=== PATIENT | female | born 1995 | race Two or more races ===

== ENCOUNTER 2020-02-13 10:24 | Emergency (ER) | payer SELFPAY ==
[~2020-02-13] VITALS: Ht 160 cm; Wt 61.7 kg
[2020-02-13 11:24] VITALS: BP 136/88
== END 2020-02-13 13:57 | disposition home or self-care (01) ==
LOC: ER 10:24
DX: F41.9 Anxiety disorder, unspecified (principal)
CPT/HCPCS: 71046; 81002; 81025

== ENCOUNTER 2020-05-07 11:18 | Emergency (ER) | payer MEDICAID ==
[~2020-05-07] VITALS: Ht 160 cm; Wt 59.0 kg
[2020-05-07 12:14] VITALS: BP 120/83
== END 2020-05-07 13:25 | disposition home or self-care (01) ==
LOC: ER 11:18
DX: O23.41 Unspecified infection of urinary tract in pregnancy, first trimester (principal); O26.891 Other specified pregnancy related conditions, first trimester; M54.6 Pain in thoracic spine; Z3A.01 Less than 8 weeks gestation of pregnancy

== ENCOUNTER → 2020-11-03 | Emergency (ER) | payer MEDICAID ==
[~2020-11-03] VITALS: Ht 160 cm; Wt 74.4 kg
[2020-11-03 22:46] VITALS: BP 114/77
[2020-11-04 00:14] LABS: Basophils # (auto) 0 10 ^3/uL (0-0.2); Basophils % (auto) 0.2 % (0.0-2.0); Eosinophils # (auto) 0.1 10 ^3/uL (0-0.8); Eosinophils % (auto) 1.3 % (0.0-7.0); Hematocrit 38.5 % (36.0-46.0); Hemoglobin 13.3 g/dL (12.2-16.2); Lymphocytes # (auto) 1.6 10 ^3/uL (0.4-5.4); Lymphocytes % (auto) 17.1 % (10.0-50.0); Mean Corpuscular Hemoglobin 31.2 pg (28.0-32.0); Mean Corpuscular Hgb Conc. 34.5 g/dL (32.0-36.0); Mean Corpuscular Volume 90.5 fL (80.0-100.0); Monocytes % (auto) 10.4 % (0.0-12.0); Neutrophils # (auto) 6.8 10 ^3/uL (1.6-8.6); Platelet Count (auto) 261 10^3/uL (140-450); Red Blood Cells 4.25 10^6/uL (4.0-5.20); Red Cell Distribution Width 13.3 % (11.8-14.3); White Blood Cell 9.6 10^3/uL (4.4-10.8)
[2020-11-04 00:24] LABS: Alanine Aminotransferase 22 U/L (13-56); Albumin 2.8 g/dL (3.4-5.0); Anion Gap 10 (5-15); Aspartate Aminotransferase 14 U/L (15-37); BUN/Creatinine Ratio 12.2; Blood Urea Nitrogen 6 mg/dL (7-18); Calcium 8.7 mg/dL (8.5-10.1); Carbon Dioxide 21 mmol/L (21-32); Chloride 106 mmol/L (98-107); GFR African American 198 mL/min; GFR Non-African American 164 mL/min; Glucose 87 mg/dL (74-106); Lipase 236 U/L (73-393); Potassium 3.8 mmol/L (3.5-5.1); Sodium 137 mmol/L (136-145)
[2020-11-04 00:28] LABS: INR 0.86 (0.9-1.15); Partial Thromboplastin Time 23.4 sec (23.0-31.2)
[2020-11-04 00:30] LABS: Alkaline Phosphatase 98 U/L (45-117); Bilirubin, Total 0.2 mg/dL (0.2-1.0); Total Protein 7.1 g/dL (6.4-8.2)
== END | disposition left against medical advice (07) ==
LOC: ER 22:42
DX: R07.9 Chest pain, unspecified (principal); Z53.21 Procedure and treatment not carried out due to patient leaving prior to being seen by health care provider
CPT/HCPCS: 36415; 80053; 83690; 84484; 84702; 85025; 85610; 85730

== ENCOUNTER 2020-12-22 04:45 | Observation (INO) | payer MEDICAID ==
[2020-12-22] MEDS ORDERED: PREN-96 PO (05:41)
== END 2020-12-22 06:01 | disposition home or self-care (01) ==
LOC: LDRP 04:45
PROVIDERS: ADMIT Specialist; ATTEND Specialist
DX: O62.9 Abnormality of forces of labor, unspecified (principal); Z3A.37 37 weeks gestation of pregnancy
CPT/HCPCS: 59025; 81002; G0378

== ENCOUNTER 2020-12-27 13:55 | Observation (INO) | payer MEDICAID ==
[~2020-12-27] VITALS: Ht 160 cm; Wt 80.7 kg
[~2020-12-27 13:55] MED LIST: PREN-96 PO
== END 2020-12-27 15:45 | disposition home or self-care (01) ==
LOC: LDRP 13:55
PROVIDERS: ADMIT Obstetrics & Gynecology; ATTEND Obstetrics & Gynecology
DX: O62.9 Abnormality of forces of labor, unspecified (principal); Z3A.38 38 weeks gestation of pregnancy
CPT/HCPCS: 59025; 81002; G0378

== ENCOUNTER 2021-01-02 21:32 | Inpatient (IN) | payer MEDICAID ==
[~2021-01-02] VITALS: Ht 160 cm; Wt 82.1 kg
[2021-01-02] MEDS ORDERED: DERMOPLAST 60ML BOTTLE TOP PRN (22:15)
[2021-01-02] MEDS ORDERED: LACT. RINGERS/OXYTOCIN 20UNITS 1,000 ML IV ONE (22:15)
[2021-01-02] MEDS ORDERED: WITCH HAZEL-GLYCERIN PAD TOP PRN (22:15)
[2021-01-02] MEDS ORDERED: PHISODERM TOP SOLN 240ML BTL TOP PRN (22:15)
[2021-01-02] MEDS ORDERED: LIDOCAINE 2%HCL (LOCAL ANESTH.) INJ 20ML MDV IJ ONE (22:15)
[2021-01-02 23:21] LABS: Basophils # (auto) 0 10 ^3/uL (0-0.2); Basophils % (auto) 0.3 % (0.0-2.0); Eosinophils # (auto) 0.1 10 ^3/uL (0-0.8); Eosinophils % (auto) 0.8 % (0.0-7.0); Hematocrit 35.6 % (36.0-46.0); Hemoglobin 12.8 g/dL (12.2-16.2); Lymphocytes # (auto) 1.6 10 ^3/uL (0.4-5.4); Lymphocytes % (auto) 19.9 % (10.0-50.0); Mean Corpuscular Hgb Conc. 35.9 g/dL (32.0-36.0); Mean Corpuscular Volume 89.1 fL (80.0-100.0); Monocytes # (auto) 0.9 10 ^3/uL (0-1.3); Monocytes % (auto) 11.2 % (0.0-12.0); Neutrophils # (auto) 5.6 10 ^3/uL (1.6-8.6); Neutrophils % (auto) 67.8 % (37.0-80.0); Nucleated Red Blood Cells % 0.1 %; Platelet Count (auto) 253 10^3/uL (140-450); White Blood Cell 8.2 10^3/uL (4.4-10.8)
[2021-01-02 23:28] LABS: Urine Bacteria MANY /hpf (None Seen); Urine Blood 3+ /uL (Negative); Urine Mucus FEW (None Seen); Urine Specific Gravity 1.021 (1.001-1.035); Urine WBC 54 /hpf (0 - 5)
[2021-01-02 23:40] LABS: Albumin 2.7 g/dL (3.4-5.0); BUN/Creatinine Ratio 23.4; Calcium 8.7 mg/dL (8.5-10.1); Potassium 3.6 mmol/L (3.5-5.1)
[2021-01-02 23:43] LABS: Bilirubin, Total 0.2 mg/dL (0.2-1.0); Total Protein 6.4 g/dL (6.4-8.2)
[2021-01-02 23:54] LABS: INR 0.85 (0.9-1.15); Partial Thromboplastin Time 24.8 sec (23.0-31.2)
[2021-01-03 00:17] LABS: Amphetamine Screen, Urine NEGATIVE (NEGATIVE); Barbiturate Scree,Urine NEGATIVE (NEGATIVE); Benzodiazephine Screen, Urine NEGATIVE (NEGATIVE); Cannabinoid Screen, Urine NEGATIVE (NEGATIVE); Cocaine Screen, Urine NEGATIVE (NEGATIVE); Opiate Scree,Urine NEGATIVE (NEGATIVE); Phencyclidine Screen, Urine NEGATIVE (NEGATIVE)
[2021-01-03] MEDS: LACTATED RINGER'S 1,000 ML IV SCH ×3 (00:35→19:36)
[2021-01-03] MEDS ORDERED: BUTORPHANOL TARTRATE 2 MG/1 ML VIAL IV ONE (01:45)
[2021-01-03] MEDS: miSOPROStol 50 MCG per PRE-CUT 1/2 TAB PO PRN ×2 (03:32→07:55)
[2021-01-03] MEDS ORDERED: BUTORPHANOL TARTRATE 2 MG/1 ML VIAL IV PRN (05:45)
[2021-01-03] MEDS ORDERED: ROPIVACAINE HCL 200 ML EPI SCH ×2 (08:30→13:30)
[2021-01-03] MEDS ORDERED: NALOXONE HCL 0.4 MG/ML VIAL IV ONE (08:30)
[2021-01-03] MEDS ORDERED: fentaNYL CITRATE 100 MCG/2 ML VL IV ONE (08:30)
[2021-01-03] MEDS ORDERED: ePHEDrine SULFATE 50 MG/ML AMP IV ONE (08:30)
[2021-01-03] MEDS ORDERED: LIDOCAINE HCL 2 %PF INJ 10ML AMP IJ ONE ×2 (08:30→21:35)
[2021-01-03] MEDS ORDERED: LACT. RINGERS/OXYTOCIN 20UNITS 1,000 ML IV SCH (12:45)
[2021-01-03] MEDS ORDERED: TERBUTALINE SULFATE 1 MG/ML 1ML VIAL SC ONE (12:45)
[2021-01-03] MEDS ORDERED: ceFAZolin 1GM/50ML 50 ML IV SCH ×2 (15:00→22:45)
[2021-01-03] MEDS ORDERED: ACETAMINOPHEN IV 1000 MG/100ML (10MG/ML) IV STA (18:41)
[2021-01-03] MEDS ORDERED: GENTAMICIN SULFATE 80 MG in D5W 5% 100 ML IV SCH (20:00)
[2021-01-03] MEDS ORDERED: fentaNYL CITRATE 100 MCG/2 ML VL ONE (20:47)
[2021-01-03] MEDS ORDERED: MIDAZOLAM HCL 1MG/1ML-2 ML VIAL ONE (20:47)
[2021-01-03] MEDS ORDERED: MORPHINE SULF INJ 2 MG/ML SYRINGE 1ML IV PRN (21:30)
[2021-01-03] MEDS ORDERED: LABETALOL HCL 5 MG/ML 4ML SYRINGE IV PRN (21:30)
[2021-01-03] MEDS ORDERED: MIDAZOLAM HCL 1MG/1ML-2 ML VIAL IV PRN (21:30)
[2021-01-03] MEDS ORDERED: ONDANSETRON HCL 4 MG/2 ML VIAL IV PRN ×3 (21:30→22:30)
[2021-01-03] MEDS ORDERED: ePHEDrine SULFATE 50 MG/ML AMP IV PRN ×2 (21:30→22:30)
[2021-01-03] MEDS ORDERED: HYDROmorphone HCL 2 MG/ML VL IV PRN ×2 (21:30→22:30)
[2021-01-03] MEDS ORDERED: oxyTOCIN 10 UNIT/ML 10ML VIAL ONE (21:42)
[2021-01-03] MEDS ORDERED: MORPHINE SULF(PF) 0.5MG/ML 10ML VIAL ONE (21:55)
[2021-01-03] MEDS ORDERED: diphenhdrAMINE HCL 50 MG/1 ML VL IV PRN (22:15)
[2021-01-03] MEDS ORDERED: KETOROLAC TROMETH 30 MG/ML 1ML VIAL IV PRN (22:15)
[2021-01-03] MEDS ORDERED: NALOXONE HCL 0.4 MG/ML VIAL IV PRN (22:15)
[2021-01-03] MEDS ORDERED: DexAMETHasone SOD PHOS 10MG/1ML VIAL INJ IV PRN (22:15)
[2021-01-03] MEDS ORDERED: NALBUPHINE HCL 10 MG/1ml INJECTION SUBCUT ONE (22:15)
[2021-01-03] MEDS ORDERED: GUM (CHEWING) 1 GUM CHEW CHEW ONE (22:30)
[2021-01-03] MEDS ORDERED: ACETAMINOPHEN IV 1000 MG/100ML (10MG/ML) IV PRN (22:30)
[2021-01-03] MEDS ORDERED: GENTAMICIN SULFATE 80 MG in D5W 5% 100 ML IV ONE (22:30)
[2021-01-03] MEDS: HYDROmorphone HCL 2 MG/ML VL IV PRN ×2 (22:45→23:00)
[2021-01-03 23:07] VITALS: BP 151/77
[2021-01-03 23:15] VITALS: BP 117/78
[2021-01-03 23:30] VITALS: BP 109/76
[2021-01-03 23:45] VITALS: BP 103/76
[2021-01-04] VITALS (23 sets, daily range): BP systolic 96–124; BP diastolic 55–84
[2021-01-04] MEDS: LACTATED RINGER'S 1,000 ML IV SCH ×3 (00:24→12:57)
[2021-01-04] MEDS: ceFAZolin 1GM/50ML 50 ML IV SCH ×3 (00:24→17:50)
[2021-01-04] MEDS: KETOROLAC TROMETH 30 MG/ML 1ML VIAL IV SCH ×3 (01:21→15:24)
[2021-01-04 07:06] LABS: RPR Non Reactive (Non Reactive)
[2021-01-04 07:12] LABS: Basophils # (auto) 0 10 ^3/uL (0-0.2); Basophils % (auto) 0.2 % (0.0-2.0); Eosinophils # (auto) 0 10 ^3/uL (0-0.8); Eosinophils % (auto) 0.2 % (0.0-7.0); Hematocrit 30.5 % (36.0-46.0); Hemoglobin 10.5 g/dL (12.2-16.2); Lymphocytes # (auto) 1.4 10 ^3/uL (0.4-5.4); Lymphocytes % (auto) 12.1 % (10.0-50.0); Mean Corpuscular Hemoglobin 30.9 pg (28.0-32.0); Mean Corpuscular Hgb Conc. 34.6 g/dL (32.0-36.0); Mean Corpuscular Volume 89.2 fL (80.0-100.0); Monocytes # (auto) 1.2 10 ^3/uL (0-1.3); Neutrophils # (auto) 8.9 10 ^3/uL (1.6-8.6); Neutrophils % (auto) 77.5 % (37.0-80.0); Nucleated Red Blood Cells % 0.1 %; Platelet Count (auto) 215 10^3/uL (140-450); Red Blood Cells 3.42 10^6/uL (4.0-5.20); Red Cell Distribution Width 14.3 % (11.8-14.3); White Blood Cell 11.5 10^3/uL (4.4-10.8)
[2021-01-04] MEDS ORDERED: ceFAZolin 1GM/50ML 50 ML IV SCH (18:00)
[2021-01-05] VITALS (7 sets, daily range): BP systolic 105–132; BP diastolic 59–84
[2021-01-05] MEDS ORDERED: HYDROcodone-ACET 5/325MG TAB PO PRN (01:30)
[2021-01-05] MEDS: IBUPROFEN 800 MG TAB PO PRN ×3 (04:39→23:23)
[2021-01-05] MEDS: KETOROLAC TROMETH 30 MG/ML 1ML VIAL IV SCH (06:25)
[2021-01-05] MEDS: HYDROcodone-ACET 5/325MG TAB PO PRN ×2 (07:36→16:15)
[2021-01-05] MEDS: SIMETHICONE 80 MG CHEWABLE TABLET PO PRN ×2 (09:30→16:14)
[2021-01-05] MEDS: DOCUSATE SOD 100 MG CAP PO SCH ×2 (10:55→22:25)
[2021-01-06 03:00] VITALS: BP 120/70
[2021-01-06 07:00] VITALS: BP 107/68
[2021-01-06 11:00] VITALS: BP 132/84
[2021-01-06] MEDS: DOCUSATE SOD 100 MG CAP PO SCH (12:15)
[2021-01-06] MEDS: HYDROcodone-ACET 5/325MG TAB PO PRN (12:15)
[2021-01-06 15:00] VITALS: BP 110/61
== END 2021-01-06 17:42 | disposition home or self-care (01) | DRG 540 ==
LOC: LDRP 21:32 → OBSVTOIN 22:05 → LDRP 22:16
PROVIDERS: ADMIT Obstetrics & Gynecology; ATTEND Obstetrics & Gynecology
PROC: 10D00Z1 Extraction of Products of Conception, Low, Open Approach (ICD-10-PCS; principal; 2021-01-03 21:18)
DX: O64.0XX0 Obstructed labor due to incomplete rotation of fetal head, not applicable or unspecified (principal); R71.0 Precipitous drop in hematocrit; O99.52 Diseases of the respiratory system complicating childbirth; O99.344 Other mental disorders complicating childbirth; O62.0 Primary inadequate contractions; F32.9 Major depressive disorder, single episode, unspecified; Z20.822 Contact with and (suspected) exposure to COVID-19; F41.9 Anxiety disorder, unspecified; J45.909 Unspecified asthma, uncomplicated; Z37.0 Single live birth; Z3A.39 39 weeks gestation of pregnancy
CPT/HCPCS: 36415; 59025; 62282; 80053; 80307; 81001; 81002; 84112; 85025; 85610; 85730; 86592; 86850; 86900; 86901; 87426; 94760; 96360; 96361; 96374; 96375; G0378; J0131; J0690; J1885; J2250; J2405; J2590; J7060

== ENCOUNTER → 2022-12-11 | Outpatient (CLI) | payer MEDICAID ==
[2022-12-11 10:56] LABS: Basophils # (auto) 0 10 ^3/uL (0-0.2); Basophils % (auto) 0.4 % (0.0-2.0); Eosinophils # (auto) 0.1 10 ^3/uL (0-0.8); Eosinophils % (auto) 1.6 % (0.0-7.0); Hematocrit 35.6 % (36.0-46.0); Lymphocytes # (auto) 1.4 10 ^3/uL (0.4-5.4); Lymphocytes % (auto) 23.7 % (10.0-50.0); Mean Corpuscular Hemoglobin 28.7 pg (28.0-32.0); Mean Corpuscular Hgb Conc. 33.7 g/dL (32.0-36.0); Mean Corpuscular Volume 85.1 fL (80.0-100.0); Monocytes # (auto) 0.6 10 ^3/uL (0-1.3); Monocytes % (auto) 10.4 % (0.0-12.0); Neutrophils # (auto) 3.8 10 ^3/uL (1.6-8.6); Neutrophils % (auto) 63.9 % (37.0-80.0); Nucleated Red Blood Cells % 0.1 %; Red Blood Cells 4.18 10^6/uL (4.0-5.20); Red Cell Distribution Width 13.3 % (11.8-14.3)
[2022-12-12 08:06] LABS: RPR Non Reactive (Non Reactive)
== END | disposition home or self-care (01) ==
LOC: LAB 10:46
PROVIDERS: ATTEND Obstetrics & Gynecology
DX: Z34.80 Encounter for supervision of other normal pregnancy, unspecified trimester (principal); Z3A.00 Weeks of gestation of pregnancy not specified
CPT/HCPCS: 36415; 84112; 85025; 86592

== ENCOUNTER 2022-12-31 03:35 | Inpatient (IN) | payer MEDICAID ==
[~2022-12-31] VITALS: Ht 160 cm; Wt 78.5 kg
[2022-12-31] VITALS (22 sets, daily range): BP systolic 109–141; BP diastolic 56–86
[2022-12-31] MEDS ORDERED: ceFAZolin 1GM/50ML 50 ML IV ONE (04:30)
[2022-12-31] MEDS ORDERED: LACTATED RINGER'S 1,000 ML IV SCH ×2 (04:30)
[2022-12-31] MEDS ORDERED: LACTATED RINGER'S 1,000 ML IV ONE (04:30)
[2022-12-31 05:07] LABS: Basophils # (auto) 0 10 ^3/uL (0-0.2); Basophils % (auto) 0.3 % (0.0-2.0); Eosinophils # (auto) 0.1 10 ^3/uL (0-0.8); Eosinophils % (auto) 1.5 % (0.0-7.0); Hematocrit 34.6 % (36.0-46.0); Hemoglobin 12.5 g/dL (12.2-16.2); Lymphocytes # (auto) 1.9 10 ^3/uL (0.4-5.4); Lymphocytes % (auto) 23.8 % (10.0-50.0); Mean Corpuscular Hemoglobin 28.9 pg (28.0-32.0); Mean Corpuscular Volume 80.2 fL (80.0-100.0); Monocytes # (auto) 0.8 10 ^3/uL (0-1.3); Monocytes % (auto) 9.8 % (0.0-12.0); Neutrophils # (auto) 5.2 10 ^3/uL (1.6-8.6); Neutrophils % (auto) 64.6 % (37.0-80.0); Nucleated Red Blood Cells % 0.1 %; Red Blood Cells 4.32 10^6/uL (4.0-5.20); Red Cell Distribution Width 14.1 % (11.8-14.3); White Blood Cell 8.1 10^3/uL (4.4-10.8)
[2022-12-31 05:09] LABS: Urine Bacteria FEW /hpf (None Seen); Urine Blood Negative /uL (Negative); Urine Mucus FEW (None Seen); Urine Specific Gravity 1.016 (1.001-1.035); Urine WBC 2 /hpf (0 - 5)
[2022-12-31] MEDS ORDERED: MORPHINE SULF PF 5 MG/10 ML VIAL ONE (05:17)
[2022-12-31] MEDS ORDERED: fentaNYL CITRATE 100 MCG/2 ML VL ONE (05:17)
[2022-12-31] MEDS ORDERED: ePHEDrine SULFATE 50 MG/ML AMP ONE (05:18)
[2022-12-31] MEDS ORDERED: PHENYLEPHRINE HCL 10 MG/ML VL ONE (05:18)
[2022-12-31] MEDS ORDERED: ceFAZolin 1GM VL ONE (05:18)
[2022-12-31] MEDS ORDERED: BUPIVACAINE 0.5% P/F INJ 10 ML VIAL ONE (05:18)
[2022-12-31] MEDS ORDERED: KETOROLAC TROMETH 30 MG/ML 1ML VIAL ONE (05:18)
[2022-12-31] MEDS ORDERED: ONDANSETRON HCL 4 MG/2 ML VIAL ONE (05:18)
[2022-12-31] MEDS ORDERED: GLYCOPYRROLATE 0.2 MG/ML 1ML VIAL ONE (05:18)
[2022-12-31 05:21] LABS: Albumin 2.7 g/dL (3.4-5.0); Alcohol, Urine < 3.0 mg/dL (0-10); Amphetamine Screen, Urine NEGATIVE (NEGATIVE); BUN/Creatinine Ratio 16.2 (10.0-20.0); Barbiturate Scree,Urine NEGATIVE (NEGATIVE); Benzodiazephine Screen, Urine NEGATIVE (NEGATIVE); Calcium 8.9 mg/dL (8.5-10.1); Cannabinoid Screen, Urine NEGATIVE (NEGATIVE); Cocaine Screen, Urine NEGATIVE (NEGATIVE); Opiate Scree,Urine NEGATIVE (NEGATIVE); Phencyclidine Screen, Urine NEGATIVE (NEGATIVE); Potassium 3.8 mmol/L (3.5-5.1)
[2022-12-31 05:23] LABS: Bilirubin, Total 0.2 mg/dL (0.2-1.0); Total Protein 7.1 g/dL (6.4-8.2)
[2022-12-31] MEDS ORDERED: DexAMETHasone SOD PHOS 10MG/1ML VIAL INJ IV PRN (05:30)
[2022-12-31] MEDS ORDERED: ONDANSETRON HCL 4 MG/2 ML VIAL IV PRN (05:30)
[2022-12-31] MEDS ORDERED: NALOXONE HCL 0.4 MG/ML VIAL IV PRN ×2 (05:30)
[2022-12-31] MEDS ORDERED: KETOROLAC TROMETH 30 MG/ML 1ML VIAL IV PRN (05:30)
[2022-12-31] MEDS ORDERED: diphenhdrAMINE HCL 50 MG/1 ML VL IV PRN (05:30)
[2022-12-31 05:56] LABS: Partial Thromboplastin Time 24.5 sec (24.6-33.4)
[2022-12-31 06:07] LABS: INR 0.84 (0.9-1.15)
[2022-12-31] MEDS ORDERED: OXYTOCIN 10UNIT/ML 1ML VIAL ONE (06:55)
[2022-12-31] MEDS ORDERED: HYDR-4902 PO (09:07)
[2022-12-31] MEDS ORDERED: DOCU-94 PO (09:07)
[2022-12-31] MEDS ORDERED: IBUP800T27 PO (09:07)
[2022-12-31] MEDS ORDERED: GUM (CHEWING) 1 GUM CHEW CHEW ONE (09:15)
[2022-12-31] MEDS: LACTATED RINGER'S 1,000 ML IV SCH ×2 (10:04→16:45)
[2022-12-31] MEDS: ACETAMINOPHEN IV 1000 MG/100ML (10MG/ML) IV PRN ×2 (10:04→23:16)
[2022-12-31 22:17] LABS: Basophils # (auto) 0.1 10 ^3/uL (0-0.2); Basophils % (auto) 0.9 % (0.0-2.0); Eosinophils # (auto) 0.1 10 ^3/uL (0-0.8); Eosinophils % (auto) 0.6 % (0.0-7.0); Hematocrit 29.6 % (36.0-46.0); Hemoglobin 10.3 g/dL (12.2-16.2); Lymphocytes # (auto) 1.1 10 ^3/uL (0.4-5.4); Lymphocytes % (auto) 13.3 % (10.0-50.0); Mean Corpuscular Hemoglobin 28.1 pg (28.0-32.0); Mean Corpuscular Hgb Conc. 34.8 g/dL (32.0-36.0); Mean Corpuscular Volume 80.6 fL (80.0-100.0); Monocytes # (auto) 0.6 10 ^3/uL (0-1.3); Monocytes % (auto) 7.2 % (0.0-12.0); Neutrophils # (auto) 6.5 10 ^3/uL (1.6-8.6); Red Blood Cells 3.67 10^6/uL (4.0-5.20); Red Cell Distribution Width 14.1 % (11.8-14.3); White Blood Cell 8.3 10^3/uL (4.4-10.8)
[2023-01-01] VITALS (12 sets, daily range): BP systolic 104–131; BP diastolic 67–80
[2023-01-01] MEDS: LACTATED RINGER'S 1,000 ML IV SCH (00:56)
[2023-01-01] MEDS ORDERED: BISACODYL 10 MG RECT SUPP PR PRN (04:00)
[2023-01-01] MEDS ORDERED: HYDROcodone-ACET 5/325MG TAB PO PRN (04:00)
[2023-01-01] MEDS: HYDROcodone-ACET 5/325MG TAB PO PRN ×2 (04:10→16:14)
[2023-01-01 06:06] LABS: RPR Non Reactive (Non Reactive)
[2023-01-01] MEDS: SIMETHICONE 80 MG CHEWABLE TABLET PO SCH ×3 (08:31→19:06)
[2023-01-01] MEDS: IBUPROFEN 800 MG TAB PO PRN ×2 (10:49→19:06)
[2023-01-01] MEDS: DOCUSATE SOD 100 MG CAP PO SCH (10:52)
[2023-01-01] MEDS: DOCUSATE CALCIUM 240 MG CAP PO SCH (10:52)
[2023-01-01] MEDS: FERROUS SULFATE 325mg EC TAB PO SCH (10:55)
[2023-01-02] MEDS: HYDROcodone-ACET 5/325MG TAB PO PRN (03:14)
[2023-01-02 03:15] VITALS: BP 119/79
[2023-01-02] MEDS: SIMETHICONE 80 MG CHEWABLE TABLET PO SCH ×5 (05:35→22:15)
[2023-01-02] MEDS: DOCUSATE SOD 100 MG CAP PO SCH ×3 (05:41→22:15)
[2023-01-02] MEDS: FERROUS SULFATE 325mg EC TAB PO SCH ×3 (05:41→22:15)
[2023-01-02 06:06] LABS: Basophils # (auto) 0 10 ^3/uL (0-0.2); Basophils % (auto) 0.4 % (0.0-2.0); Eosinophils # (auto) 0.2 10 ^3/uL (0-0.8); Eosinophils % (auto) 2.7 % (0.0-7.0); Hematocrit 30.8 % (36.0-46.0); Hemoglobin 10.3 g/dL (12.2-16.2); Lymphocytes # (auto) 1.8 10 ^3/uL (0.4-5.4); Mean Corpuscular Hgb Conc. 33.5 g/dL (32.0-36.0); Mean Corpuscular Volume 83.6 fL (80.0-100.0); Monocytes # (auto) 0.7 10 ^3/uL (0-1.3); Monocytes % (auto) 10.1 % (0.0-12.0); Neutrophils # (auto) 4.2 10 ^3/uL (1.6-8.6); Neutrophils % (auto) 60.8 % (37.0-80.0); Nucleated Red Blood Cells % 0.1 %; Red Blood Cells 3.68 10^6/uL (4.0-5.20); Red Cell Distribution Width 14.3 % (11.8-14.3); White Blood Cell 6.9 10^3/uL (4.4-10.8)
[2023-01-02 07:11] VITALS: BP 123/77
[2023-01-02] MEDS ORDERED: GUM (CHEWING) 1 GUM CHEW CHEW ONE (09:30)
[2023-01-02] MEDS: IBUPROFEN 800 MG TAB PO PRN ×2 (09:38→18:59)
[2023-01-02] MEDS: DOCUSATE CALCIUM 240 MG CAP PO SCH (09:38)
[2023-01-02 11:20] VITALS: BP 109/64
[2023-01-02 14:55] VITALS: BP 91/57
[2023-01-02 18:52] VITALS: BP 124/83
[2023-01-02 23:15] VITALS: BP 132/84
[2023-01-03 02:50] VITALS: BP 144/74
[2023-01-03] MEDS: IBUPROFEN 800 MG TAB PO PRN (03:07)
[2023-01-03] MEDS: SIMETHICONE 80 MG CHEWABLE TABLET PO SCH (06:00)
[2023-01-03 07:00] VITALS: BP 119/82
[2023-01-03] MEDS: DOCUSATE SOD 100 MG CAP PO SCH (10:19)
[2023-01-03] MEDS: FERROUS SULFATE 325mg EC TAB PO SCH (10:19)
[2023-01-03] MEDS: DOCUSATE CALCIUM 240 MG CAP PO SCH (10:19)
[2023-01-03 11:00] VITALS: BP 130/84
== END 2023-01-03 11:33 | disposition home or self-care (01) | DRG 540 ==
LOC: LDRP 03:35 → OBSVTOIN 04:28 → LDRP 22:13
PROVIDERS: ADMIT Obstetrics & Gynecology; ATTEND Obstetrics & Gynecology
PROC: 10D00Z1 Extraction of Products of Conception, Low, Open Approach (ICD-10-PCS; principal; 2022-12-31 05:28)
DX: O34.211 Maternal care for low transverse scar from previous cesarean delivery (principal); O60.14X0 Preterm labor third trimester with preterm delivery third trimester, not applicable or unspecified; R71.0 Precipitous drop in hematocrit; J45.909 Unspecified asthma, uncomplicated; O62.1 Secondary uterine inertia; Z20.822 Contact with and (suspected) exposure to COVID-19; Z37.0 Single live birth; Z3A.37 37 weeks gestation of pregnancy
CPT/HCPCS: 36415; 59025; 80053; 80307; 81001; 81002; 85025; 85610; 85730; 86592; 86850; 86900; 86901; 86920; 87426; 94760; 94762; 96360; 96361; G0378; J0131; J0690; J1885; J2405; J3490